=== PATIENT | male | born 1990 | race Caucasian/White ===

== ENCOUNTER 2019-07-30 21:37 | Emergency (ER) | payer OTHER ==
[~2019-07-30] VITALS: Ht 182.9 cm; Wt 70.8 kg
[~2019-07-30 21:37] MED LIST: AMOX1TAB12 PO; CIPRO500 MG PO; KETO10TA2 PO; ZYNCOF 20-400120 ML PO
== END 2019-07-31 01:23 | disposition home or self-care (01) ==
LOC: ER 21:37
DX: J00 Acute nasopharyngitis [common cold] (principal); R50.9 Fever, unspecified

== ENCOUNTER 2021-02-13 10:11 | Emergency (ER) | payer OTHER ==
[~2021-02-13] VITALS: Ht 182.9 cm; Wt 77.1 kg
== END 2021-02-13 14:52 | disposition home or self-care (01) ==
LOC: ER 10:11
DX: U07.1 COVID-19 (principal); R53.81 Other malaise

== ENCOUNTER 2021-03-31 20:21 | Emergency (ER) | payer OTHER ==
[~2021-03-31] VITALS: Ht 182.9 cm; Wt 81.6 kg
[2021-03-31] MEDS ORDERED: REDNESS RELIEF15 M1 OP (22:08)
[2021-03-31] MEDS ORDERED: NAPROXEN375 MG PO (22:08)
== END 2021-03-31 22:54 | disposition home or self-care (01) ==
LOC: ER 20:21
DX: S05.8X2A Other injuries of left eye and orbit, initial encounter (principal); X58.XXXA Exposure to other specified factors, initial encounter; Y93.H3 Activity, building and construction; Y92.018 Other place in single-family (private) house as the place of occurrence of the external cause; Y99.8 Other external cause status

== ENCOUNTER 2022-05-17 20:04 | Emergency (ER) | payer OTHER ==
[~2022-05-17] VITALS: Ht 182.9 cm; Wt 77.1 kg
[~2022-05-17 20:04] MED LIST changes: +NAPROXEN375 MG PO; +REDNESS RELIEF15 M1 OP
== END 2022-05-18 01:55 | disposition home or self-care (01) ==
LOC: ER 20:04
DX: M25.571 Pain in right ankle and joints of right foot (principal); M25.471 Effusion, right ankle; M25.671 Stiffness of right ankle, not elsewhere classified; S99.911A Unspecified injury of right ankle, initial encounter; W20.8XXA Other cause of strike by thrown, projected or falling object, initial encounter; Y93.9 Activity, unspecified; Y92.9 Unspecified place or not applicable; Y99.9 Unspecified external cause status

== ENCOUNTER 2024-08-09 21:27 | Emergency (ER) | payer OTHER ==
[~2024-08-09] VITALS: Ht 177.8 cm; Wt 71.7 kg
[2024-08-10] MEDS ORDERED: HYOSCYAMINE SULFATE 0.125 MG TAB.SUBL SL STA (03:58)
[2024-08-10] MEDS ORDERED: LACTOBACILLUS ACIDOPHILUS 1 CAP CAP PO STA (03:58)
[2024-08-10] MEDS ORDERED: LACTOBACILLUS ACIDOPHILUS 1 CAP CAP PO ONE (04:04)
[2024-08-10] MEDS ORDERED: HYOSCYAMINE SULFATE 0.125 MG TAB.SUBL ONE (04:04)
[2024-08-10] MEDS ORDERED: BARIUM SULFATE 450 ML ORAL.SUSP PO ONE (04:06)
[2024-08-10 04:31] LABS: HEMATOCRIT 47.5 % (39.0-48.0); HEMOGLOBIN 16.7 g/dL (13-16.00); MEAN CELL VOLUME 88.8 fL (80.0-100.00); MEAN CORPUSCULAR HEMOGLOBIN 31.3 pg (27.00-32.0); MEAN CORPUSCULAR HGB CONC 35.2 g/dl (32.0-36.0); PLATELET COUNT 157 K/uL (150-450); RED BLOOD COUNT 5.35 M/uL (4.00-6.00); RED CELL DISTRIBUTION WIDTH 13.9 % (11.5-14.5)
[2024-08-10 04:45] LABS: AMYLASE 53 U/L (25-115); LIPASE 28 U/L (13-75)
[2024-08-10 06:58] LABS: URINE BACTERIA 15.9 uL (0.0-1933); URINE EPITHELIAL CELLS 7.7 uL (0.0-38.8); URINE WBC 15.3 uL (0.0-23.2)
[2024-08-10 07:04] LABS: URINE BILIRRUBIN SMALL (NEGATIVE); URINE BLOOD NEGATIVE; URINE GLUCOSE NEGATIVE (NEGATIVE); URINE KETONE NEGATIVE (NEGATIVE); URINE LEUKOCYTE NEGATIVE; URINE NITRATE POSITIVE; URINE PROTEIN NEGATIVE (NEGATIVE); URINE UROBILINOGEN 0.2 E.U./dl
[2024-08-10 07:11] LABS: URINE APPEARANCE TURBID; URINE CAST 0.58 uL (0.0-1.40); URINE COLOR YELLOW; URINE RBC 1.4 uL (0.0-20.8)
[2024-08-10] MEDS ORDERED: FAMOTIDINE/PF 20 MG in 0.9 % SODIUM CHLORIDE 8 ML IV PUSH STA (09:34)
[2024-08-10] MEDS ORDERED: KETOROLAC TROMETHAMINE 30 MG VIAL IV ONE (09:45)
[2024-08-10] MEDS ORDERED: KETOROLAC TROMETHAMINE 30 MG VIAL ONE (10:03)
[2024-08-10] MEDS ORDERED: FAMOTIDINE/PF 20 MG/2 ML VIAL ONE (10:03)
[2024-08-10 12:03] LABS: ALBUMIN 4.5 gm/dL (3.4-5.0); BILIRUBIN TOTAL 1.06 mg/dL (0.3-1.2); CALCIUM 9.8 mg/dL (8.5-10.1); CREATININE SERUM 0.9 mg/dL (0.70-1.30); GFR 98.42; GLOBULINA 3.6 G/DL (2.4-3.5); POTASSIUM 4.16 mEq/L (3.5-5.1); TOTAL PROTEIN 8.1 gm/dL (6.4-8.2)
[2024-08-10] MEDS ORDERED: PEPCID AC20 MG PO (12:25)
[2024-08-10] MEDS ORDERED: ZOFRAN8 MG PO (12:25)
== END 2024-08-10 12:46 | disposition home or self-care (01) ==
LOC: ER 21:29
PROVIDERS: General Practice
DX: R10.32 Left lower quadrant pain (principal)